=== PATIENT | female | born 2000 | race Caucasian/White ===

== ENCOUNTER 2025-01-24 01:26 | Inpatient (IN) | payer OTHER ==
[2025-01-24 02:02] LABS: Absolute Lymphocytes (CBC) 2.0 K/uL (0.7-4.9); Hematocrit 38.0 % (36.0-45.0); Hemoglobin 13.2 g/dL (12.0-15.0); MCH 29.0 pg (27.0-35.0); MCHC 34.8 g/dL (32.0-36.0); MCV 83.5 fL (80-100); MPV 7.2 fL (7.6-11.3); Nucleated RBC Absolute Count 0.0 (0-0); Nucleated Red Blood Cells % 0.1 % (0-0); RBC Red Blood Cell Count 4.55 M/uL (3.86-4.86); White Blood Count 10.70 thou/uL (4.3-10.9)
[2025-01-24 02:14] LABS: PT Prothrombin Time 12.5 SECONDS (10-13.0); PTT, Activated Partial Thromb 30.6 SECONDS (27.2-37.4); Protime INR 1.11
[2025-01-24 03:13] LABS: ALT/SGPT 34 U/L (13-56); AST/SGOT 25 U/L (15-37); Albumin 3.7 g/dL (3.4-5.0); Albumin/Globulin Ratio 1.0 (1.1-1.8); Alkaline Phosphatase 59 U/L (45-117); Anion Gap 10.4 mEq/L (5.0-15.0); BUN Blood Urea Nitrogen 24 mg/dL (7-18); Bilirubin Indirect, Calculated 0.1 mg/dL (0.2-0.8); Globulin 3.7 g/dL (2.3-3.5); Glucose Level 115 mg/dL (74-106); Potassium 3.4 mEq/L (3.5-5.1)
[2025-01-24] MEDS ORDERED: NA CHLORIDE 0.9% 1,000 ML ONE (04:19)
[2025-01-24] MEDS ORDERED: ONDANSETRON 4 MG/2 ML VIAL IV PRN (04:21)
--- NOTE | 2025-01-24 04:21 | EDPHYS ---
Physician Documentation [facility] Name: Valencia Krishnan Age: 24 yrs Sex: Female : 2000 Arrival Date: 01/24/2025 Time: 01:26 Bed 2 Private MD: ED Physician Rei Fisher HPI: 01/24 07:56 This 24 yrs old Female presents to ER via EMS with complaints of Possible Overdose, tt7 Suicidal Ideation. 07:56 Patient reports that she got in an argument with her significant other and tried to tt7 commit suicide by overdosing on pills. About 45 minutes ago she ingested either a handful or approximately 30 100 mg trazodone tablets, she also ingested an unknown amount of an unknown antidepressant medication, she denies any alcohol or illicit drug Ingestion, she states that shortly after taking the pills she regretted doing it and tried to induce herself to vomit, currently she states that she feels very sleepy and overall unwell, not having any focal pain, patient reports history of anxiety, depression, bipolar disorder. STEAM HAND: 01:26 unknown, LMP 1 year ago after childbirth lg3 Historical: - Allergies: 01:52 No Known Allergies; lg3 - Home Meds: 01:52 Trazodone Oral [Active]; Clonidine Oral [Active]; lg3 - PMHx: 01:52 Anxiety; Depressive disorder; Bipolar disorder; lg3 - PSHx: 01:52 Appendectomy; lg3 - Immunization history:: Adult Immunizations up to date. - Infectious Disease History:: Denies. - Social history:: Smoking status: Patient denies any tobacco usage or history of. Patient/guardian denies using alcohol, street drugs. ROS: 07:58 Constitutional: negative for fever. Cardiovascular: negative for chest pain. tt7 Respiratory: negative for shortness of breath. MS/Extremity: negative for injury and deformity. Skin: negative for rash. Neuro: negative for focal weakness. 07:58 Abdomen/GI: Positive for nausea and vomiting, Negative for abdominal pain, Exam: 07:59 Constitutional: vital signs reviewed, well appearing. Head/Face: normocephalic, tt7 atraumatic. Eyes: no conjunctival injection, anicteric sclerae. ENT: mucus membranes moist. Neck: trachea midline, no JVD, no meningismus. Chest/axilla: normal chest wall appearance and motion, nontender, no crepitus. Cardiovascular: Tachycardic with regular rhythm, no murmurs, no rubs, no lower extremity edema. Respiratory: normal respiratory effort, no accessory muscle use, lungs CTAB. Abdomen/GI: soft, nondistended, nontender, no guarding or rebound, negative Melendez's sign, no McBurney point tenderness. Back: normal ROM. Skin: warm, dry, intact, normal turgor, normal color, no rash. MS/ Extremity: normal ROM of extremities, no gross deformities. Neuro: alert and oriented with appropriate mental status, normal speech, follows commands, no focal neurologic deficits. Psych: Depressed mood and flat affect Vital Signs: 01:26 BP 115 / 70; Pulse 133; Resp 22 S; Temp 97.6(O); Pulse Ox 97% on R/A; Weight 72.57 kg lg3 (R); Height 5 ft. 2 in. (R); Pain 0/10; 03:05 BP 111 / 65; Pulse 92; Resp 17 S; Pulse Ox 96% on R/A; lg3 05:00 BP 111 / 62; Pulse 101; Resp 16 S; Pulse Ox 95% on R/A; sa1 01:26 Body Mass Index 29.26 (72.57 kg, 157.48 cm) lg3 01:26 Pain Scale: Adult lg3 MDM: 01:44 Medical Screening Exam initiated tt7 07:55 ED course: I have reviewed and independently interpreted the patient's EKG performed on tt7 01/24/2025 at 0033. On my interpretation, normal sinus rhythm, ventricular rate 93 bpm, normal axis, normal QRS interval, normal ST segments, no STEMI. 08:00 Differential diagnosis: Trazodone toxicity, SSRI toxicity, serotonin syndrome, alcohol tt7 intoxication, polysubstance abuse, depression with suicidal ideation, suicide attempt, psychosis, acute renal failure, acute liver failure, acetaminophen toxicity, salicylate toxicity. Data reviewed: vital signs, nurses notes, lab test result(s), Beta HCG: CBC, drug level(s), acetaminophen, alcohol, salicylate, electrolytes, hepatic panel, urine drug screen, EKG. Consideration of Admission/Observation Patient was admitted/placed on observation. Management of patient was discussed with the following: Hospitalist: I discussed the patient presentation, physical exam findings, vital signs, laboratory studies, poison control recommendations with hospitalist Dr. Coughlin who accepts for admission. I considered the following discharge prescriptions or medication management in the emergency department Antibiotics: At this time antibiotics are not recommended, Pain Medications: At this time, prescription pain medications are not recommended, Medications were administered in the Emergency Department. See MAR. Historians other than the Patient: EMS: . Care significantly affected by the following chronic conditions: Depression, bipolar disorder, anxiety. Counseling: I had a detailed discussion with the patient and/or guardian regarding the historical points, exam findings, and any diagnostic results supporting the discharge/admit diagnosis, lab results, the need for further work-up and treatment in the hospital. ED course: Patient was monitored on continuous cardiac telemetry to evaluate for arrhythmia and to monitor hemodynamics, on my independent interpretation on cardiac telemetry patient was in sinus tachycardia with rate of 132. I started IV normal saline bolus to help improve patient's tachycardia and to maintain a stable blood pressure. Trazodone toxicity can prolong QTc and increased risk of torsades de points, patient was monitored on continuous telemetry for this reason. Due to a high probability of clinically significant, life threatening deterioration, the patient required my highest level of care. I personally spent this critical care time directly and personally managing the patient. This critical care time included independently obtaining a history, examining the patient, pulse oximetry, cardiac telemetry monitoring, ordering and review of studies laboratory and imaging studies, development of a management plan, evaluation of patient's response to treatment, and frequent reassessment. It was exclusive of separately billable procedures. I personally spent 35 minutes of critical care time, exclusive of time spent on any procedures, in evaluation and management of this critically ill patients condition. 01/24 01:44 Order name: Acetaminophen; Complete Time: 04:15 01/24 01:44 Order name: Basic Metabolic Panel; Complete Time: 04:15 01/24 01:44 Order name: CBC with Diff; Complete Time: 02:40 01/24 01:44 Order name: ETOH Level; Complete Time: 02:40 01/24 01:44 Order name: Hepatic Function; Complete Time: 04:15 01/24 01:44 Order name: PT-INR; Complete Time: 02:40 01/24 01:44 Order name: Ptt, Activated; Complete Time: 02:40 tt7 01/24 01:44 Order name: Salicylate; Complete Time: 02:40 tt7 01/24 01:44 Order name: Urine Drug Screen tt7 01/24 01:44 Order name: Test, Serum; Complete Time: 02:40 tt7 01/24 04:25 Order name: CBC with Automated Diff EDMS 01/24 04:25 Order name: CBC with Automated Diff EDMS 01/24 04:25 Order name: Comprehensive Metabolic Panel EDMS 01/24 04:25 Order name: Comprehensive Metabolic Panel EDMS 01/24 01:44 Order name: EKG - Nurse/Tech; Complete Time: 01:58 tt7 01/24 01:44 Order name: IV Saline Lock; Complete Time: 01:58 tt7 01/24 01:44 Order name: Labs collected and sent; Complete Time: 01:58 tt7 01/24 01:44 Order name: Suicide Screening ([place]); Complete Time: :58 tt Administered Medications: 04:40 Drug: NS 0.9% IV 1000 ml IV at 1 bolus Per protocol; to be given as a bolus over 60 vc1 minutes Route: IV; Rate: 1 bolus; Site: left antecubital; 05:08 Follow up: Response: No adverse reaction; IV Status: Completed infusion; IV Intake: lg3 1000ml Disposition: 08:07 Co-signature as Attending Physician, Rei Fisher DO. tt7 Disposition Summary: 01/24/25 04:21 Hospitalization Ordered Notes: Hospitalization Status: Inpatient Admission tt7 Provider: Oliver Coughlin tt7 Condition: Stable tt7 Problem: new tt7 Symptoms: are unchanged tt7 Bed/Room Type: Standard tt7 Location: Intensive Care Unit(01/24/25 04:50) cg Room Assignment: 4-(01/24/25 04:50) cg Diagnosis - TRAZADONE OVERDOSE tt7 - INTENTIONAL OVERDOSE tt7 - SUICIDE ATTEMPT tt7 Forms: - Medication Reconciliation Form tt7 - SBAR form tt7 - Leadership Thank You Letter tt7 Signatures: Dispatcher [employer] Cara Gonzalez RN RN cg Able, Lacie, RN RN lg3 Mare Chinchilla RN RN vc1 Rei Fisher DO DO tt7 Corrections: (The following items were deleted from the chart) 04:50 04:21 Telemetry/MedSurg (Inpatient) tt7 cg 04:50 04:21 tt7 cg
--- NOTE | 2025-01-24 04:21 | ER ---
Nurse's Notes [facility] Name: Valencia Krishnan Age: 24 yrs Sex: Female : 2000 Arrival Date: 01/24/2025 Time: : Bed 2 Private MD: Diagnosis: TRAZADONE OVERDOSE;INTENTIONAL OVERDOSE;SUICIDE ATTEMPT Presentation: 01/24 01:26 Chief complaint: Patient states: verbal altercation with significant other. took lg3 "handful" of trazodone and 6 of unknown antidepressant in suicide attempt. Coronavirus screen: Client denies travel out of the [place] in the last 14 days. At this time, the client does not indicate any symptoms associated with coronavirus-19. Ebola Screen: No symptoms or risks identified at this time. Initial Sepsis Screen: Does the patient meet any 2 criteria? RR > 20 per min. HR > 90 bpm. Does the patient have a suspected source of infection? No. Patient's initial sepsis screen is negative. Risk Assessment: Do you want to hurt yourself or someone else? Patient reports desire/thoughts of hurting themselves or someone else. Provider notified. Onset of symptoms was January 24, 2025. : Method Of Arrival: EMS: [facility] lg3 01: Acuity: KRIS 2 lg3 Triage Assessment: : General: Appears in no apparent distress. comfortable, Behavior is calm, cooperative, lg3 flat. Pain: Denies pain. EENT: No deficits noted. No signs and/or symptoms were reported regarding the EENT system. Neuro: Connors Agitation-Sedation Scale (RASS): -1 Drowsy Level of Consciousness is awake, alert, obeys commands, Oriented to person, place, time, situation. Cardiovascular: No deficits noted. Denies chest pain, shortness of breath, Capillary refill < 3 seconds Clubbing of nail beds is absent JVD is absent Patient's skin is warm and dry. Respiratory: No deficits noted. Airway is patent Respiratory effort is even, unlabored, Respiratory pattern is regular, symmetrical. 01:26 GI: No deficits noted. No signs and/or symptoms were reported involving the lg3 gastrointestinal system. : No signs and/or symptoms were reported regarding the genitourinary system. Derm: No deficits noted. No signs and/or symptoms reported regarding the dermatologic system. Skin is intact, is healthy with good turgor, Skin is dry, Skin is normal, Skin temperature is warm. Musculoskeletal: No deficits noted. No signs and/or symptoms reported regarding the musculoskeletal system. Circulation, motion, and sensation intact. Range of motion: intact in all extremities. TALLIER: : unknown, LMP 1 year ago after childbirth lg3 Historical: - Allergies: : No Known Allergies; lg3 - Home Meds: : Trazodone Oral [Active]; Clonidine Oral [Active]; lg3 - PMHx: :52 Anxiety; Depressive disorder; Bipolar disorder; lg3 - PSHx: :52 Appendectomy; lg3 - Immunization history:: Adult Immunizations up to date. - Infectious Disease History:: Denies. - Social history:: Smoking status: Patient denies any tobacco usage or history of. Patient/guardian denies using alcohol, street drugs. Screenin: [facility] ED Fall Risk Assessment (Adult) History of falling in the last 3 months, lg3 including since admission No falls in past 3 months (0 pts) Confusion or Disorientation No (0 pts) Intoxicated or Sedated Yes (3 pts) Impaired Gait No (0 pts) Mobility Assist Device Used No (0 pt) Altered Elimination No (0 pt) Score/Fall Risk Level 3 or more points = High Risk Oriented to surroundings, Maintained a safe environment, Educated pt \\T\\ family on fall prevention, incl call for assistance when getting out of bed, Assessed \\T\\ reinforced patient's understanding of fall precautions, Provided non-skid footwear. Abuse screen: Denies threats or abuse. Denies injuries from another. Nutritional screening: No deficits noted. Tuberculosis screening: No symptoms or risk factors identified. Assessment: : General: see triage assessment. lg3 02:00 General: poison control case # [id number] Per [place], 24HR Observation due to unknown lg3 antidepressant ingested., repeat EKG in 4 HRS, continuous cardiac monitoring, seizure precautions, possible QT prolongation and lethargy. . 03:06 Reassessment: Patient appears in no apparent distress at this time. No changes from lg3 previously documented assessment. Patient and/or family updated on plan of care and expected duration. Pain level reassessed. Patient is alert, oriented x 3, equal unlabored respirations, skin warm/dry/pink. Overdose: 01:26 [place] Suicide Severity Screening: "In the past month, have you wished you were lg3 or wished you could go to sleep and not wake up?" Patient responds "yes." Based off client's responses, additional C-SSRS screening questions required. "In the past month, have you actually had any thoughts of killing yourself?" Patient responds "yes." Based off client's responses, additional C-SSRS screening questions required. "In your lifetime, have you ever done anything, started to do anything, or prepared to do anything to end your life?" Patient responds "yes." Patient reports suicidal intent within 3 past months. Vital Signs: 01:26 BP 115 / 70; Pulse 133; Resp 22 S; Temp 97.6(O); Pulse Ox 97% on R/A; Weight 72.57 kg lg3 (R); Height 5 ft. 2 in. (R); Pain 0/10; 03:05 BP 111 / 65; Pulse 92; Resp 17 S; Pulse Ox 96% on R/A; lg3 05:00 BP 111 / 62; Pulse 101; Resp 16 S; Pulse Ox 95% on R/A; sa1 01:26 Body Mass Index 29.26 (72.57 kg, 157.48 cm) lg3 01:26 Pain Scale: Adult lg3 ED Course: 01:26 Safety Checks: Personal items have been removed. The door is open or patient has been lg3 placed in a hallway bed/chair. There are no family/friend visitors at this time Sitter present at this time. 01:26 Arm band placed on right wrist. lg3 01:26 Patient has correct armband on for positive identification. Bed in low position. Side lg3 rails up X 1. Client placed on continuous cardiac and pulse oximetry monitoring. NIBP monitoring applied. monitor technician on. Patient is placed in psych hold. 01:26 Initial lab(s) drawn, by ED staff, sent to lab. EKG done, by ED staff, reviewed by starr Fisher DO. Inserted saline lock: 20 gauge in left antecubital area, using aseptic technique. Blood collected. Flushed with 10 mL NS. 01:32 Patient arrived in ED. gm2 01:44 Rei Fisher DO is Attending Physician. tt7 01:48 Minnie Young, RN is Primary Nurse. lg3 01:52 Triage completed. lg3 01:58 Test, Serum Sent. lg3 04:20 Rei Fisher DO is Hospitalizing Provider. tt7 04:20 Hospitalizing Provider role handed off by Rei Fisher DO tt7 04:20 Oliver Coughlin MD is Hospitalizing Provider. tt7 04:57 Patient admitted, IV remains in place. lg3 05:04 No provider procedures requiring assistance completed. lg3 Administered Medications: 04:40 Drug: NS 0.9% IV 1000 ml IV at 1 bolus Per protocol; to be given as a bolus over 60 vc1 minutes Route: IV; Rate: 1 bolus; Site: left antecubital; 05:08 Follow up: Response: No adverse reaction; IV Status: Completed infusion; IV Intake: lg3 1000ml Medication: 01:26 VIS not applicable for this client. lg3 Intake: 05:08 IV: 1000ml; Total: 1000ml. lg3 Outcome: 04:21 Decision to Hospitalize by Provider. tt7 04:56 Admitted to ICU accompanied by nurse, via wheelchair, room 4, Report called to Christopher lg3 04:56 Condition: stable 04:56 Instructed on the need for admit, Demonstrated understanding of instructions, 05:19 Patient left the ED. jj7 Signatures: Minnie Young, RN RN lg3 Mare Chinchilla RN RN 1 Red Cordon RN RN jj7 Connie Kolb Sultan Jolene [facility] Rei Fisher DO DO tt7
--- NOTE | 2025-01-24 04:25 | P.HP ---
Certification for Inpatient Patient admitted to: Inpatient With expected LOS: >2 Midnights Practitioner: I am a practitioner with admitting privileges, knowledge of patient current condition, hospital course, and medical plan of care. Services: Services provided to patient in accordance with Admission requirements found in Title 42 Section 412.3 of the Code of Federal Regulations Patient History Date of Service: 01/24/25 Reason for admission: Drug Overdose History of Present Illness: 24-year-old female with past medical history of anxiety, depression, bipolar disorder who was brought to ER with drug overdosage. She took a bunch of trazodone tablets. At the time of interview patient is drowsy and barely arousable. Denies any recent illness. No fever or chills. Denies chest pain or shortness of breath. No nausea vomiting or diarrhea. Patient was assessed in the ER and was admitted for further management of drug overdose/suicidal ideation. Home medications list reviewed: Yes - Past Medical/Surgical History Past Medical History: Reviewed- Non-Contributory -: Anxiety, depression, bipolar Past Surgical History: Reviewed- Non-Contributory - Social History Smoking Status: Never smoker Review of Systems is unable to be obtained Physical Examination - Vital Signs Temperature: 97.6 F Blood Pressure: 132/78 Pulse: 76 Respirations: 18 Pulse Ox (%): 94 - Physical Exam General: Other (Drowsy) HEENT: Atraumatic, Normocephalic Neck: Supple Respiratory: Clear to auscultation bilaterally, Normal air movement Cardiovascular: Regular rate/rhythm, Normal S1 S2 Capillary refill: <2 Seconds Gastrointestinal: Soft and benign, W/out hepatosplenomegaly Musculoskeletal: No clubbing, No swelling Integumentary: No rashes Neurological: Other (Drowsy, moves all the limbs) Lymphatics: No axilla or inguinal lymphadenopathy - Studies Laboratory Data (last 24 hrs) 01/24/25 01/24/25 01/24/25 01:47 01:47 01:44 WBC 10.70 Hgb 13.2 Hct 38.0 Plt Count 401 PT 12.5 INR 1.11 APTT 30.6 Sodium 139 Potassium 3.4 L BUN 24 H Creatinine 0.94 Glucose 115 H Total Bilirubin 0.3 AST 25 ALT 34 Alkaline Phosphatase 59 Assessment and Plan - Plan Drug overdose Monitor closely on telemetry Appreciate help from poison control Watch QTc level closely Monitor for arrhythmias IV hydration Hypokalemia Electrolytes monitor and replace accordingly Monitor renal parameters Suicidal ideation Anxiety Depression Bipolar disorder Needs psych evaluation GI/DVT prophylaxis Advanced directive full code Discharge Plan: Psychiatry Plan to discharge in: 48 Hours - Advance Directives Does patient have a Living Will: No Does patient have a Durable POA for Healthcare: No - Code Status/Comfort Care Code Status: Full Code Time Spent Managing Pts Care (In Minutes): 48
[2025-01-24 05:54] VITALS: BMI 29.2
[2025-01-24 06:11] LABS: METHAMPHETAM NEGATIVE (NEGATIVE); THC Cannibis POSITIVE (NEGATIVE)
[2025-01-24 07:31] LABS: Magnesium 2.1 mg/dL (1.6-2.4)
[2025-01-24] MEDS: NA CHLORIDE 0.9% 1,000 ML IV SCH (08:35)
[2025-01-25] MEDS: ACETAMINOPHEN 325 MG TABLET PO PRN (00:09)
[2025-01-25 06:11] LABS: Absolute Lymphocytes (CBC) 2.5 K/uL (0.7-4.9); Hematocrit 35.2 % (36.0-45.0); Hemoglobin 12.1 g/dL (12.0-15.0); MCH 29.0 pg (27.0-35.0); MCHC 34.3 g/dL (32.0-36.0); MCV 84.4 fL (80-100); MPV 7.0 fL (7.6-11.3); Nucleated RBC Absolute Count 0.0 (0-0); Nucleated Red Blood Cells % 0.0 % (0-0); RBC Red Blood Cell Count 4.18 M/uL (3.86-4.86); White Blood Count 7.60 thou/uL (4.3-10.9)
[2025-01-25 06:25] LABS: Magnesium 2.1 mg/dL (1.6-2.4)
[2025-01-25 06:30] LABS: ALT/SGPT 24.0 U/L (13-56); AST/SGOT 13.0 U/L (15-37); Albumin 3.1 g/dL (3.4-5.0); Albumin/Globulin Ratio 0.9 (1.1-1.8); Alkaline Phosphatase 52.0 U/L (45-117); Anion Gap 7.8 mEq/L (5.0-15.0); BUN Blood Urea Nitrogen 14.0 mg/dL (7-18); Globulin 3.3 g/dL (2.3-3.5); Glucose Level 106.0 mg/dL (74-106); Potassium 3.8 mEq/L (3.5-5.1)
[2025-01-25] MEDS: POTASSIUM CL SA 10 MEQ TAB PO ONE (07:55)
[2025-01-25 08:24] VITALS: O2SAT 97
[2025-01-25 12:33] LABS: Sqamous Epithelial <5 /HPF (None Seen); Urine Culture Reflex Order NOT NEEDED; Urine Microscopic Reflex YN ORDER UMIC
[2025-01-25] MEDS: KETOROLAC 30 MG/ML INJ IV PRN (12:52)
--- NOTE | 2025-01-25 16:18 | P.PN ---
Date of Service: 01/25/25 Subjective: Endorses blurry vision and pelvic pain. Denies fevers and chills. No acute events overnight. Denies shortness of breath or chest pain Review of Systems is unable to be obtained Physical Examination - Vital Signs Temperature: 97.6 F Blood Pressure: 132/78 Pulse: 76 Respirations: 18 Pulse Ox (%): 94 - Physical Exam General: Other (Drowsy) HEENT: Atraumatic, Normocephalic Neck: Supple Respiratory: Clear to auscultation bilaterally, Normal air movement Cardiovascular: Regular rate/rhythm, Normal S1 S2 Capillary refill: <2 Seconds Gastrointestinal: Soft and benign, W/out hepatosplenomegaly Musculoskeletal: No clubbing, No swelling Integumentary: No rashes Neurological: Other (Drowsy, moves all the limbs) Lymphatics: No axilla or inguinal lymphadenopathy - Studies Laboratory Data (last 24 hrs) 01/24/25 01/24/25 01/24/25 01:47 01:47 01:44 WBC 10.70 Hgb 13.2 Hct 38.0 Plt Count 401 PT 12.5 INR 1.11 APTT 30.6 Sodium 139 Potassium 3.4 L BUN 24 H Creatinine 0.94 Glucose 115 H Total Bilirubin 0.3 AST 25 ALT 34 Alkaline Phosphatase 59 Assessment and Plan - Plan 01/25 - Vital stable - Blurry vision likely side effect from trazodone overdose - No arrhythmias on monitor while here - Stop IV hydration and telemetry - Electrolytes repleted and hypokalemia resolved - Discharge home with family and follow-up with psychiatrist - Resources for domestic violence Drug overdose Monitor closely on telemetry Appreciate help from poison control Watch QTc level closely Monitor for arrhythmias IV hydration Hypokalemia Electrolytes monitor and replace accordingly Monitor renal parameters Suicidal ideation Anxiety Depression Bipolar disorder Needs psych evaluation GI/DVT prophylaxis Advanced directive full code Discharge Plan: Psychiatry Plan to discharge in: 48 Hours - Advance Directives Does patient have a Living Will: No Does patient have a Durable POA for Healthcare: No - Code Status/Comfort Care Code Status: Full Code Time Spent Managing Pts Care (In Minutes): 48
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
[2025-01-25 22:03] VITALS: BP 119/72; TEMP 98.1
== END 2025-01-26 00:42 | disposition home or self-care (01) | DRG 918 ==
LOC: ER 01:26 → ERHOLD 04:21 → 3RD-ICU 05:05 → 4TH 01-25 14:54
PROVIDERS: ADMIT Family Medicine; ATTEND Family Medicine
DX: T43.212A Poisoning by selective serotonin and norepinephrine reuptake inhibitors, intentional self-harm, initial encounter (principal); R45.851 Suicidal ideations; E87.6 Hypokalemia; F31.9 Bipolar disorder, unspecified; F41.9 Anxiety disorder, unspecified; Z90.49 Acquired absence of other specified parts of digestive tract
CPT/HCPCS: 36415; 80048; 80053; 80076; 80143; 80179; 80307; 81001; 82077; 83735; 84100; 84484; 84703; 85025; 85610; 85730; 93005; 94760; 99285; J1885; J7030